=== PATIENT | male | born 1970 | race Caucasian/White ===

== ENCOUNTER 2017-01-04 08:00 | Outpatient (CLI) | payer BC | END 2017-01-04 23:59 | DX: I47.2 Ventricular tachycardia (principal) ==

== ENCOUNTER 2017-12-07 08:00 | Outpatient (CLI) | payer BC, OTHER ==
[2017-12-07 18:23] LABS: CALCIUM 9.5 mg/dL (8.5-10.3); CREATININE 1.3 mg/dL (0.6-1.2)
== END 2017-12-07 08:01 | disposition home or self-care (01) ==
LOC: LAB.F 08:00
PROVIDERS: ATTEND Internal Medicine Cardiovascular Disease
DX: I47.2 Ventricular tachycardia (principal)
CPT/HCPCS: 36415; 80048

== ENCOUNTER 2018-01-04 18:29 | Outpatient (CLI) | payer OTHER | END 2018-01-04 18:30 | disposition home or self-care (01) | LOC: RT 18:29 | PROVIDERS: ATTEND Internal Medicine Cardiovascular Disease | DX: I47.2 Ventricular tachycardia (principal) | CPT/HCPCS: 93005 ==

== ENCOUNTER 2021-01-08 09:43 | Outpatient (CLI) | payer MEDICAID, OTHER ==
[2021-01-08 15:07] LABS: BASOPHILS % (AUTO) 0.4 %; EOSINOPHILS # (AUTO) 0.1 10^3/uL (0.0-0.7); EOSINOPHILS % (AUTO) 1.3 %; HCT - HEMATOCRIT 46.6 % (42.0-52.0); HGB - HEMOGLOBIN 16.3 g/dL (14.0-18.0); LYMPHOCYTES # (AUTO) 2.3 10^3/uL (1.5-3.5); LYMPHOCYTES % (AUTO) 32.9 %; MEAN CORPUSCULAR HEMOGLOBIN 30.8 pg (27.0-31.0); MEAN CORPUSCULAR VOLUME 88.1 fL (80.0-94.0); MEAN PLATELET VOLUME 11.2 fL (7.4-11.4); MONOCYTES # (AUTO) 0.4 10^3/uL (0.0-1.0); MONOCYTES % (AUTO) 5.6 %; NEUTROPHILS # (AUTO) 4.2 10^3/uL (1.5-6.6); NEUTROPHILS % (AUTO) 59.4 %; PLT - PLATELET COUNT 192 10^3/uL (130-450); RED BLOOD COUNT 5.29 10^6/uL (4.70-6.10); RED CELL DISTRIBUTION WIDTH 12.3 % (12.0-15.0)
[2021-01-08 15:39] LABS: ALBUMIN 4.9 g/dL (3.2-5.5); ALBUMIN/GLOBULIN RATIO 1.9 (1.0-2.2); ALKALINE PHOSPHATASE 61 IU/L (42-121); ALT ALANINE AMINOTRANSFERASE 23 IU/L (10-60); AST ASPARTATE AMINOTRANSFERASE 19 IU/L (10-42); BILIRUBIN,TOTAL 1.6 mg/dL (0.2-1.0); BUN - BLOOD UREA NITROGEN 26 mg/dL (6-20); CALCIUM 9.5 mg/dL (8.5-10.3); CARBON DIOXIDE - CO2 28 mmol/L (21-32); CHLORIDE 102 mmol/L (101-111); CHOL/HDL RATIO 5.2 (<5.0); CHOLESTEROL 240 mg/dL; GFR - MDRD 79 (>89); GLUCOSE 88 mg/dL (70-100); HDL CHOLESTEROL 46 mg/dL; LDL CHOLESTEROL,CALCULATED 158 mg/dL; LDL/HDL RATIO 3.4 (<3.6); POTASSIUM 3.7 mmol/L (3.5-5.0); SODIUM 138 mmol/L (135-145); TOTAL PROTEIN 7.5 g/dL (6.7-8.2); TRIGLYCERIDES 180 mg/dL; VLDL CHOLESTEROL 36 mg/dL
[2021-01-08 15:43] LABS: THYROID STIMULATING HORMONE 2.47 uIU/mL (0.34-5.60)
[2021-01-10 15:11] LABS: HEPATITIS C ANTIBODY NON-REACTIVE (NON-REACTIVE); HIV AG/AB 4TH GEN NON-REACTIVE (NON-REACTIVE)
== END 2021-01-08 09:44 | disposition home or self-care (01) ==
LOC: LAB.S 09:43
PROVIDERS: ATTEND Registered Nurse
DX: Z00.00 Encounter for general adult medical examination without abnormal findings (principal); Z95.810 Presence of automatic (implantable) cardiac defibrillator; I49.01 Ventricular fibrillation; Z12.5 Encounter for screening for malignant neoplasm of prostate
CPT/HCPCS: 36415; 80053; 80061; 83721; 84153; 84443; 85025; 86803; 87389

== ENCOUNTER 2023-05-05 08:00 | Outpatient (CLI) | payer MEDICAID, OTHER ==
--- NOTE | 2023-05-05 22:47 | XRAY Report ---
PROCEDURE: Ankle 3 View RT INDICATIONS: CONTUSION OF RIGHT FOOT/ANKLE TECHNIQUE: 3 views of the ankle were acquired. COMPARISON: Correlation is made with the accompanying foot plain films. FINDINGS: Bones: There is a mildly displaced intra-articular fracture seen involving the medial malleolus. There is a fracture fragment seen along the posterior aspect of the talus, which is likely remote. Incidental note is made of an accessory ossicle, an os peroneum. Incidental note is made of an enthesophyte at the Achilles insertion. Soft tissues: Soft tissue swelling is seen, which is worst laterally. IMPRESSION: Mildly displaced medial malleolar fracture. Fracture fragment seen along the posterior aspect of the talus, which is considered to be remote. Reviewed by: Francisco Oliveira MD on 05/05/2023 9:45 PM [facility] Approved by: Francisco Oliveira MD on 05/05/2023 9:45 PM [facility] Station ID: [id number]
--- NOTE | 2023-05-05 22:48 | XRAY Report ---
PROCEDURE: Foot 3 View RT INDICATIONS: CONTUSION OF RIGHT FOOT/ANKLE TECHNIQUE: 3 views of the foot were acquired. COMPARISON: Correlation is made with the accompanying ankle plain films. FINDINGS: Bones: There is a mildly displaced medial malleolar fracture seen, with intra-articular involvement. No additional fractures can be seen. Generalized degenerative changes are seen. There is a bony excrescence seen along the medial aspect o f the distal phalanx of the great toe, which is commonly seen in patients with poorly fitting footwea r. Incidental note is made of an accessory ossicle, an os peroneum. Soft tissues: No suspicious soft tissue calcifications or masses. IMPRESSION: Medial malleolar fracture. Reviewed by: Francisco Oliveira MD on 05/05/2023 9:46 PM [facility] Approved by: Francisco Oliveira MD on 05/05/2023 9:46 PM [facility] Station ID: [id number]
== END 2023-05-05 23:59 | disposition home or self-care (01) ==
LOC: DI.S 08:00
PROVIDERS: ATTEND Emergency Medicine
DX: S90.31XA Contusion of right foot, initial encounter (principal); S90.01XA Contusion of right ankle, initial encounter; S82.51XA Displaced fracture of medial malleolus of right tibia, initial encounter for closed fracture